=== PATIENT | male | born 1960 ===

== ENCOUNTER 2021-04-27 08:26 | Observation (INO) ==
[~2021-04-27 08:26] MED LIST: Buffered Lidocaine 1% SYRIN 1 ml INTRADERM ONE; Lactated Ringers 1000 ml BAG 1,000 ML IV SCH
[2021-04-27] MEDS ORDERED: ceFAZolin 2 GM in NS PREMIX 2 GM/100 ML BAG IVPB ONE (08:39)
[2021-04-27] MEDS ORDERED: ceFAZolin 1 GM ADVAN 1 GM ADDV.VIAL IVPB ONE (08:39)
[2021-04-27] MEDS ORDERED: Midazolam 5 mg/5 ml VIAL 1 mg/ml 5 ml VIAL (5 mg) ONE (09:28)
[2021-04-27] MEDS ORDERED: ROPIVACAINE 5 MG/ML 30 ML BTL (0.5%) ONE (09:30)
[2021-04-27] MEDS ORDERED: Phenylephrine IV 10 MG/ML 1 ml VIAL ONE (09:30)
[2021-04-27] MEDS ORDERED: Lidocaine 1% MPF 5 ML VIAL ONE (09:30)
[2021-04-27] MEDS ORDERED: Ondansetron 4 mg VIAL 2 MG/ML 2 ml VIAL ONE (09:34)
[2021-04-27] MEDS ORDERED: Propofol 10 MG/ML 20 ML BTL ONE ×2 (09:34→13:08)
[2021-04-27] MEDS ORDERED: Lidocaine 2% PF 5 ML VIAL ONE (09:34)
[2021-04-27] MEDS ORDERED: Dexamethasone IV 4 MG/ML VIAL 1 ml VIAL ONE (09:34)
[2021-04-27] MEDS ORDERED: fentaNYL 100 mcg/2 ml 50 MCG/ML VIAL ONE (09:39)
[2021-04-27] MEDS ORDERED: Midazolam 2 mg/2 ml VIAL 1 mg/ml 2 ml VIAL (2 mg) ONE (09:39)
[2021-04-27] MEDS ORDERED: Ropivacaine 5 MG/ML 20 ML VIAL 0.5% (100 MG) ONE (09:48)
[2021-04-27] MEDS ORDERED: Naloxone 0.4 mg VIAL 0.4 mg/ml 1 ml VIAL IV PRN (10:13)
[2021-04-27] MEDS ORDERED: Ondansetron 4 mg VIAL 2 MG/ML 2 ml VIAL IV PRN ×2 (10:13→11:40)
[2021-04-27] MEDS ORDERED: Acetaminophen IV 1 GM/100ML 100 ML IV PRN (10:13)
[2021-04-27] MEDS ORDERED: fentaNYL 100 mcg/2 ml 50 MCG/ML VIAL IV PRN (10:13)
[2021-04-27] MEDS ORDERED: HYDROmorphone 1 MG/1 ML SYRINGE IV PRN (10:13)
[2021-04-27] MEDS ORDERED: Morphine 2 MG/ML SYRINGE IV PRN (11:40)
[2021-04-27] MEDS ORDERED: Magnesium Hydroxide LIQ 30 ML UDC PO PRN (11:40)
[2021-04-27] MEDS ORDERED: diPHENhydraMINE 25 mg TAB PO PRN (11:40)
[2021-04-27] MEDS ORDERED: diPHENhydraMINE IV 50 MG/ML 1 ml VIAL (BENADRYL) IV PRN (11:40)
[2021-04-27] MEDS ORDERED: Lactulose 30 ml UDC PO PRN (11:40)
[2021-04-27] MEDS ORDERED: Ondansetron ODT 4 mg TAB 4 MG TAB PO PRN (11:40)
[2021-04-27] MEDS ORDERED: Lactated Ringers 1000 ml BAG 1,000 ML IV SCH (12:00)
[2021-04-27] MEDS ORDERED: Acetaminophen IV 1 GM/100ML 100 ML IV ONE (13:55)
[2021-04-27] MEDS: ceFAZolin 1 GM ADVAN 1 GM in NS 0.9% 50 ML 50 ML IVPB SCH (18:31)
[2021-04-27] MEDS: Magnesium Hydroxide LIQ 30 ML UDC PO SCH (20:44)
[2021-04-28] MEDS: ceFAZolin 1 GM ADVAN 1 GM in NS 0.9% 50 ML 50 ML IVPB SCH ×2 (02:05→10:13)
[2021-04-28 04:13] LABS: Hematocrit 40 % (42-52); Hemoglobin 13.9 g/dL (14.0-18.0); Mean Platelet Volume 11.9 fL (7.4-10.4); Platelet Count 145 10^3/uL (150-450)
[2021-04-28 04:36] LABS: Calcium 8.4 mg/dL (8.6-10.3); EGFR African American 116.8 (>60); EGFR Non-African American 96.6 (>60); Potassium 4.3 mmol/L (3.5-5.0)
[2021-04-28] MEDS: Magnesium Hydroxide LIQ 30 ML UDC PO SCH (08:27)
[2021-04-28] MEDS ORDERED: Vitamin THERAPEUTIC TAB PO SCH (09:00)
[2021-04-28] MEDS ORDERED: Flu vaccine *QUAD* 2021-22* 0.5 ML SYRINGE IM ONE (09:00)
[2021-04-28 11:37] VITALS: BP 112/78
== END 2021-04-28 16:10 | disposition home or self-care (01) ==
LOC: SSU 08:26 → OR 08:26
PROVIDERS: ADMIT Orthopaedic Surgery Adult Reconstructive Orthopaedic Surgery; ATTEND Orthopaedic Surgery Adult Reconstructive Orthopaedic Surgery